=== PATIENT | female | born 2005 | race Caucasian/White ===

== ENCOUNTER 2025-04-15 15:52 | Emergency (ER) | payer OTHER, SELFPAY ==
[2025-04-15 15:56] VITALS: BP 133/89; PULSE 84; RESP 18; TEMP 36.7; O2SAT 98; BMI 21.5
--- NOTE | 2025-04-15 16:10 | CRLHL7_ITS ---
For Patients: As a result of the Cures Act, medical imaging exams and procedure reports are released immediately into your electronic medical record. You may view this report before your referring provider. If you have questions, please contact your health care provider. Indication: Injury Comparison: None available. Technique: 3 views of the left shoulder were obtained Findings: There is mild widening of the acromioclavicular interval. No evidence of displaced fracture. The joint spaces are grossly preserved. The soft tissues are unremarkable. Impression: Mild widening of the acromioclavicular interval without evidence of displaced fracture. Finding may represent minimal AC joint sprain. Dictated by Miguel Angel Elias MD @ 04/15/2025 4:34:41 PM (Electronically Signed)
--- NOTE | 2025-04-15 16:14 | ED_ITS ---
HPI - General Adult General Chief complaint: Shoulder Injury/Pain Stated complaint: L shoulder injury Time Seen by Provider: 04/15/25 15:55 History of Present Illness HPI narrative: This 19-year-old female comes in with an injury to her left shoulder. She was playing in a soccer game and got tripped up and landed on the grass onto her left shoulder. She comes in with an Lázaro wrap to immobilize her shoulder. She states that she tried a sling that was too large for her and that did not bring any relief. She did not lose consciousness or have other injury. Related Data Home Medications ?Medication ?Instructions ?Recorded ?Confirmed azelaic acid 15 % topical gel See Rx Instructions topi star QHS 08/06/23 10/11/24 levonorgestrel 20.4 mcg/24 hr (up 1 device intrauterin e ONCE 08/06/23 10/11/24 to 8 yrs) 52 mg intrauterine device (Liletta) tretinoin 0.05 % topical cream 1 applic topical QHS 10/11/24 Allergies Allergy/AdvReac Type Severity Reaction Status Date / Time No Known Drug Allergies Allergy Verified 10/11/24 15:33 Review of Systems Status of ROS: Reports: 10 or more systems reviewed and unremarkable except as noted in History and below Narrative: Constitutional: No fevers, no weight gain or loss. Eyes: No discharge. No vision changes. HENT: No congestion, no sore throat, no ear pain. Cardiovascular: No chest pain, no palpitations. Respiratory: No shortness of breath, no wheezes, no cough. Gastrointestinal: No abdominal pain, no vomiting, no diarrhea. Genitourinary: No dysuria, no hematuria. Musculoskeletal: Left shoulder injury as described above. Skin: No rashes, no pruritis. Neurological: No dizziness, weakness, sensory change, speech change. Endo/Heme/Allergies: No bruising or bleeding. No polydipsia. Pysch: no suicidality, no anxiety, no insomnia. All other systems reviewed and are negative. [facility] Medical History (Updated 04/15/25 @ 16:53 by Jimmy Lemus MD) Anemia ?D64.9 - Anemia, unspecified (ICD-10) Family History (Updated 08/11/23 @ 15:12 by Irma Hernandez) Grandfather Stroke Sister Seizure disorder Social History (Updated 08/11/23 @ 14:25 by Vesta Black MA) What is your current living situation?: I presently have a place to live Problems where you live: no known problems In the past 12 months, utilities in danger of being shut off: no In past 12 months, lack of transportation kept you from medical appts, meetings, work, or getting things needed for daily living: no In the past 12 mos, have been you worried that your food would run out before you had money to buy more?: never true In the past 12 mos, the food you bought just didn't last and you didn't have money to buy more?: never true Smoking Status: Never smoker Do you use any of these nicotine containing products: None How often do you have a drink containing alcohol: never AUDIT-C Alcohol total score: 0 Non-prescribed substance use: denies use How often does anyone, including family, friends and others, physically hurt you : never How often does anyone, including family, friends and others, insult or talk down to you: never How often does anyone, including family, friends and others, threaten you with harm: never How often does anyone, including family, friends and others, scream or curse at you: never Exam Narrative: Exam Narrative: Constitutional: Well-developed, well-nourished, no acute distress. HEENT: Normocephalic, atraumatic. Neck: Normal range of motion. Nontender. Supple. Heart: Regular. No murmurs. Normal rate. Intact distal pulses. Lungs: Clear to auscultation. No chest discomfort. No wheezes, rhonchi, or rales. Abdomen: Normal bowel sounds. Nontender. No rebound tenderness. Genitalia: Deferred. Back: No midline tenderness. Normal range of motion. Extremities: The patient states that she can move her left arm but does not care to due so. No anterior fullness or point tenderness when palpating along the structures of her shoulder and upper arm. Skin: Intact. No rash. Warm. No erythema or pallor. Neurologic: No altered sensation. No weakness. Alert and oriented. Psychiatric: No suicidality. No anxiety or depression. No insomnia. Nursing notes and vitals signs are reviewed. Const: Vital Signs, click to edit/add: Vital Signs - 24 hr 04/15/25 15:56 Temperature 98.1 F Pulse Rate [Right Pulse Oximeter] 84 Respiratory Rate 18 Blood Pressure [Ri ght Upper Arm] 133/89 Pulse Oximetry 98 Oxygen Delivery Me thod Room Air Course Vital Signs Vital signs: Initial Vital Signs Temperature 98.1 F 04/15/25 15:56 Temperature Source Temporal Artery Scan 04/15/25 15:56 Pulse Rate 84 04/15/25 15:56 Respiratory Rate 18 04/15/25 15:56 Blood Pressure 133/89 04/15/25 15:56 Blood Pressure Mean 103 04/15/25 15:56 Blood Pressure Position Sitting 04/15/25 15:56 Pulse Oximetry 98 04/15/25 15:56 Oxygen Delivery Method Room Air 04/15/25 15:56 Vital Signs Temperature 98.1 F 04/15/25 15:56 Pulse Rate 84 04/15/25 15:56 Respiratory Rate 18 04/15/25 15:56 Blood Pressure 133/89 04/15/25 15:56 Pulse Oximetry 98 04/15/25 15:56 Oxygen Delivery Method Room Air 04/15/25 15:56 Temperature 98.1 F 04/15/25 15:56 Pulse Rate 84 04/15/25 15:56 Respiratory Rate 18 04/15/25 15:56 Blood Pressure 133/89 04/15/25 15:56 Pulse Oximetry 98 04/15/25 15:56 Oxygen Delivery Method Room Air 04/15/25 15:56 Medications Administered Medications: Generic Name Dose Route Start Last Admin Trade Name Freq PRN Reason Stop Dose Admin Ketorolac Tromethamine 10 mg 04/15/25 16:10 04/15/25 16:18 Ketorolac 10 Mg Tablet PO 04/15/25 16:11 10 mg ONCE ONE Administration Medical Decision Making MDM Narrative Medical decision making narrative: This patient comes in with an injury to left shoulder. I was able to watch a video of the injury event. She got tripped up and landed on the ground on to her left shoulder. This is a mechanism typical of a AC separation. X-ray images show no evidence of fracture. There is some subtle widening of the AC joint. This was not a weight-bearing x-ray to widened that joint space as it is too painful to carry this out. The patient received a shoulder immobilizer and a sling. She did receive an oral dose of Toradol here and IM dose of morphine. I provided [facility] prescriptions for Toradol and [place]. I also filled out a medical provider report form regarding return to activity. Imaging Data XR L Shoulder: Radiologist's impression: Mild widening of the acromioclavicular interval without evidence of displaced fracture. Finding may represent minimal AC joint sprain. Discharge Plan Discharge Clinical Impression: Separation of left acromioclavicular joint, type 1 Patient Disposition: Home w/ Parent or Adult Condition: Stable Additional Instructions: Take medication as needed and directed. Wear sling or immobilizer for symptomatic relief. Increase activity as tolerated. Follow-up with orthopedic clinic if needed. Appointment can be made by dialing [phone]. Prescriptions: No Action azelaic acid 15 % gel See Rx Instructions topical QHS Rx Instructions: 1-2 grams topically every day at bedtime; Liletta 20.4 mcg/24 hrs (8 yrs) 52 mg intrauterine device 1 device intrauterine ONCE Rx Instructions: as a single dose tretinoin 0.05 % cream 1 applic topical QHS Follow Up/Referrals: Provider,Not a Local [Primary Care Provider, Family Practice] Stand Alone Forms: [employer] Info Instructions
[2025-04-15] MEDS: KETOROLAC 10 MG TABLET PO (16:18)
== END 2025-04-15 17:34 | disposition home or self-care (01) ==
PROVIDERS: Emergency Provider Emergency Medicine Emergency Medical Services
DX: S53.102A Unspecified subluxation of left ulnohumeral joint, initial encounter (principal); W01.0XXA Fall on same level from slipping, tripping and stumbling without subsequent striking against object, initial encounter; Y93.66 Activity, soccer
CPT/HCPCS: 73030; 96372; 99283; 99284; A9270; J2270